=== PATIENT | male | born 1950 | race Caucasian/White ===

== ENCOUNTER 2021-08-27 17:23 | Emergency (ER) | payer MEDICARE, BC ==
[2021-08-27] MEDS ORDERED: Sodium Chloride 0.9% 2.5 ML Syringe FLUSH PRN (17:44)
[2021-08-27] MEDS ORDERED: Sodium Chloride 0.9% 10 ML Syringe FLUSH PRN (17:44)
[2021-08-27] MEDS ORDERED: Furosemide 40 MG/4 ML VIAL IVPUSH ONE (17:46)
[2021-08-27 18:19] LABS: BLOOD UREA NITROGEN,BUN 32 mg/dL (7.0-18.0); CARBON DIOXIDE,CO2 25.5 mmol/L (21.0-32.0); CHLORIDE,CL 101 mmol/L (98-107); GLUCOSE RANDOM 138 mg/dL (74-106); POTASSIUM,K 4.9 mmol/L (3.5-5.1); SODIUM,NA 137 mmol/L (136-148)
[2021-08-27] MEDS ORDERED: Iopamidol 755 MG/ML 500 ML Multipack Bottle IVPUSH STA (19:10)
[2021-08-27] MEDS ORDERED: Aspirin 81 MG Tab.Chew PO ONE (19:13)
[2021-08-27] MEDS ORDERED: Heparin Sodium 5,000 Units/ML Vial IVPUSH ONE (19:13)
[2021-08-27] MEDS ORDERED: Heparin Sodium/0.45% NaCl 500 ML IV SCH (19:15)
[2021-08-27] MEDS ORDERED: Heparin Sodium/0.45% NaCl 500 ML ONE (19:20)
== END 2021-08-27 21:00 ==
LOC: MW.ED 17:23
DX: I21.4 Non-ST elevation (NSTEMI) myocardial infarction (principal); I11.0 Hypertensive heart disease with heart failure; I50.9 Heart failure, unspecified; I25.2 Old myocardial infarction; Z86.73 Personal history of transient ischemic attack (TIA), and cerebral infarction without residual deficits; Z28.310 Unvaccinated for COVID-19; Z20.822 Contact with and (suspected) exposure to COVID-19
CPT/HCPCS: 36415; 71045; 71275; 80053; 81003; 83735; 83880; 84443; 84484; 85025; 85379; 85610; 85730; 93005; 96365; 96375; 96376; 99285; A9270; J1644; J1940; J3490; Q9967; U0002; 93010; 99284